=== PATIENT | female | born 1965 | race African-American/Black ===

== ENCOUNTER 2020-05-16 10:58 | Emergency (ER) | payer OTHER ==
[~2020-05-16] VITALS: Ht 162.6 cm; Wt 84.0 kg
[2020-05-16 11:18] VITALS: BP 179/89
== END 2020-05-16 11:55 | disposition left against medical advice (07) ==
LOC: ER 10:58
DX: F41.9 Anxiety disorder, unspecified (principal); Z53.21 Procedure and treatment not carried out due to patient leaving prior to being seen by health care provider

== ENCOUNTER → 2020-06-13 | Outpatient (CLI) | payer OTHER ==
[2020-05-16 11:18] VITALS: BP 179/89
--- NOTE | 2020-06-14 18:08 | KCIC ---
BILATERAL SCREENING MAMMOGRAM History: Routine screening. Comparison: None. Interpreted as new baseline examination. Technique: Routine bilateral digital mammogram views were obtained. Findings: Breast Tissue Density B : There are scattered areas of fibroglandular density. There are no dominant masses, suspicious microcalcifications or architectural distortion. IMPRESSION: No mammographic evidence of malignancy. Recommend routine screening. BI-RADS category 1: Negative. The images were reviewed with computer aided detection. Patient information is entered into the reminder system with a target due date for the next screening mammogram. Mammography is the most sensitive method for finding small breast cancers, but it does not detect the m all and is not a substitute for careful clinical examination. A negative mammogram does not negate a clinically suspicious finding and should not result in delay in biopsying a clinically suspicious a bnormality. "Our facility is accredited by the [employer] Mammography Program." Electronically signed by: Palmer Cordova MD (06/14/2020 6:05 PM) [email or web address]
== END ==
LOC: KCIC MAMMO 14:32
PROVIDERS: ATTEND Family Medicine
DX: Z12.31 Encounter for screening mammogram for malignant neoplasm of breast (principal)
CPT/HCPCS: 77067